=== PATIENT | male | born 1980 | race Caucasian/White ===

== ENCOUNTER 2016-12-11 15:18 | Outpatient (CLI) | END 2016-12-11 15:19 | disposition home or self-care (01) | LOC: AMBL 15:18 | PROVIDERS: ATTEND Internal Medicine | DX: S30.810A Abrasion of lower back and pelvis, initial encounter (principal); S19.9XXA Unspecified injury of neck, initial encounter; R52 Pain, unspecified; V86.99XA Unspecified occupant of other special all-terrain or other off-road motor vehicle injured in nontraffic accident, initial encounter ==